=== PATIENT | female | born 1980 | race Two or more races ===

== ENCOUNTER 2022-04-11 22:03 | Emergency (ER) | payer OTHER ==
[~2022-04-11] VITALS: Ht 170.2 cm; Wt 79.4 kg
--- NOTE | 2022-04-11 22:34 | NUR ---
TO ER BED 09, BIBRA 89 FOR A WITHNESSED SEIZURE EDPISODE W/ HX OF, AAOX3, BREATHING EVEN AND NON LABORED, CONNECTED TO MONITOR, AWAITING MD ORDERS
--- NOTE | 2022-04-11 22:59 | NUR ---
WAIVER SIGNED, LMP 04/05/22
[2022-04-11 23:17] LABS: BASOPHILS % (AUTO) 0.2 % (0.0-2.0); EOSINOPHILS % (AUTO) 1.1 % (0.0-6.0); HEMATOCRIT 41 % (33-45); HEMOGLOBIN 13.9 g/dL (11.5-14.8); LYMPHOCYTES # (AUTO) 0.9 K/uL (0.8-4.8); LYMPHOCYTES % (AUTO) 9.4 % (20.0-44.0); MEAN CORPUSCULAR HGB CONC 34 g/dl (31.0-36.0); MEAN CORPUSCULAR VOLUME 100 fL (82-100); MONOCYTES # (AUTO) 0.5 K/uL (0.1-1.30); MONOCYTES % (AUTO) 5.7 % (2.0-12.0); NEUTROPHILS # (AUTO) 7.8 K/uL (1.8-8.9); NEUTROPHILS % (AUTO) 83.6 % (43.0-81.0); PLATELET COUNT (AUTO) 245 K/uL (150-450); RED BLOOD CELL COUNT(AUTO) 4.14 MIL/uL (4.0-5.2); WHITE BLOOD COUNT (AUTO) 9.4 K/uL (4.3-11.0)
[2022-04-11 23:31] LABS: CALCIUM, SERUM 8.7 mg/dL (8.5-10.1); CREATININE 0.9 mg/dL (0.6-1.3); POTASSIUM 3.5 mmol/L (3.5-5.1)
[2022-04-11] MEDS ORDERED: IOHEXOL-350 100 ML VIAL IV ONE (23:31)
[2022-04-11] MEDS ORDERED: IV NS 0.9% 250 ML IV ONE (23:31)
[2022-04-11 23:37] LABS: ALBUMIN 3.8 g/dL (3.4-5.0); BILIRUBIN,DIRECT 0.1 mg/dL (0.0-0.2); BILIRUBIN,TOTAL 0.9 mg/dL (0.2-1.0)
[2022-04-12] MEDS: IV NS 0.9% 1,000 ML BAG IV ONE
[2022-04-12] MEDS ORDERED: IOHEXOL-300 100 ML VIAL IV ONE (00:27)
--- NOTE | 2022-04-12 02:41 | NUR ---
IV removed. Catheter intact and site benign. Pressure and 4x4 applied to site. No bleeding noted.Patient discharged to home in stable condition. Written and verbal after care instructions given. Patient verbalizes understanding of instruction.
[2022-04-12 02:43] VITALS: BP 136/90
== END 2022-04-12 02:44 | disposition home or self-care (01) ==
LOC: ER 22:06
DX: R56.9 Unspecified convulsions (principal); R74.01 Elevation of levels of liver transaminase levels; F17.200 Nicotine dependence, unspecified, uncomplicated; Z60.2 Problems related to living alone; V89.2XXA Person injured in unspecified motor-vehicle accident, traffic, initial encounter; Y93.89 Activity, other specified; Y92.89 Other specified places as the place of occurrence of the external cause; Y99.8 Other external cause status
CPT/HCPCS: 99285; 70450; 70498; 74177; 85025; 80048; 80076; 36415 ×2; 96360; 80320; J7050; Q9967 ×2; J7030; J7040; G0480